=== PATIENT | male | born 2000 | race Two or more races ===

== ENCOUNTER 2021-07-05 15:56 | Inpatient (IN) | payer BC, MEDICAID ==
[~2021-07-05] VITALS: Ht 162.6 cm; Wt 59.4 kg
[2021-07-05] MEDS ORDERED: ONDANSETRON HCL 4MG/2ML INJ IV STA (19:49)
[2021-07-05] MEDS ORDERED: SODIUM CHLORIDE 0.9% 1,000 ML IV ONE (20:00)
[2021-07-05] MEDS ORDERED: LORAZEPAM 2MG/ML CPJ IV ONE (20:00)
[2021-07-05] MEDS ORDERED: FOLIC ACID 1 MG, THIAMINE HCL 100 MG, MVI, ADULT NO.1 10 ML in DEXTROSE 5% WATER 1,000 ML IV ONE (20:00)
[2021-07-05 20:12] LABS: BASOPHILS % 0.3 % (0.0-2.0); EOSINOPHILS % 0.1 % (0.0-5.0); HEMATOCRIT. 42.7 % (42.0-52.0); HEMOGLOBIN. 15.1 g/dL (14.0-18.0); LYMPHOCYTES % 8.3 % (20.0-50.0); MEAN CORPUSCULAR HEMOGLOBIN 32.4 pg (28.0-32.0); MEAN CORPUSCULAR VOLUME 91.2 fL (80.0-94.0); MEAN PLATELET VOLUME 8.4 fl (7.4-10.4); MONOCYTES % 10.7 % (2.0-8.0); NEUTROPHILS % 80.6 % (40.0-76.0); PLATELET 224 x1000/uL (130-400); RED BLOOD CELL COUNT 4.68 mill/uL (4.7-6.1); RED CELL DISTRIBUTION WIDTH 13.3 % (11.6-14.6)
[2021-07-05 20:25] LABS: CHLORIDE 102 mEq/L (98-107)
[2021-07-05 20:29] LABS: ETHANOL BLOOD < 10 mg/dL
[2021-07-05] MEDS ORDERED: CHLORDIAZEPOXIDE 5 MG CAPSULE PO NR (23:45)
[2021-07-05] MEDS ORDERED: CHLORDIAZEPOXIDE 25MG CAPSULE PO ONE (23:45)
[2021-07-06] MEDS ORDERED: ONDA4TAB5 MT (00:51)
[2021-07-06 01:24] LABS: CLARITY URINE CLOUDY (CLEAR); COLOR URINE DARK YELLOW (YELLOW); KETONES URINE 4+ (NEGATIVE); LEUKOCYTE ESTERASE URINE NEGATIVE (NEGATIVE); NITRITE URINE NEGATIVE (NEGATIVE); OCCULT BLOOD URINE NEGATIVE (NEGATIVE); PROTEIN URINE 1+ (NEGATIVE)
[2021-07-06 01:46] LABS: *AMPHETAMINES SCREEN URINE NEGATIVE (NEGATIVE); *BARBITURATES SCREEN URINE NEGATIVE (NEGATIVE); *BENZODIAZEPINES SCREEN URINE NEGATIVE (NEGATIVE); *COCAINE SCREEN URINE NEGATIVE (NEGATIVE)
[2021-07-06 01:47] LABS: CANNABINOID URINE SCREEN PRESUMTIVE POSITIVE (NEGATIVE); METHADONE URINE SCREEN NEGATIVE (NEGATIVE); OPIATES URINE SCREEN NEGATIVE (NEGATIVE); PHENCYCLIDINE URINE SCREEN NEGATIVE (NEGATIVE)
[2021-07-06] MEDS ORDERED: LORAZEPAM 2MG/ML CPJ IV SCH (03:30)
[2021-07-06] MEDS ORDERED: MAGNESIUM 2 G PREMIX 50 ML IV SCH (03:30)
[2021-07-06] MEDS ORDERED: FOLIC ACID 1 MG, THIAMINE HCL 100 MG, MVI, ADULT NO.1 10 ML in DEXTROSE 5% WATER 1,000 ML IV ONE (03:30)
[2021-07-06] MEDS ORDERED: ACETAMINOPHEN 325MG TABLET PO PRN (10:45)
[2021-07-06] MEDS ORDERED: LORAZEPAM 2MG/ML CPJ IV PRN (10:45)
[2021-07-06 14:22] VITALS: BP 130/71
[2021-07-06] MEDS ORDERED: LORA-250 PO (14:34)
[2021-07-06] MEDS ORDERED: ESCI20TA PO (14:34)
[2021-07-06] MEDS: ONDANSETRON HCL 4MG/2ML INJ IV PRN ×2 (15:10→22:21)
[2021-07-06] MEDS: CHLORDIAZEPOXIDE 5 MG CAPSULE PO SCH ×2 (15:10→22:15)
[2021-07-06 16:00] VITALS: BP 130/71
[2021-07-06 20:00] VITALS: BP 105/61
[2021-07-06] MEDS: METOPROLOL TARTRATE 50MG TABLET PO SCH (21:00)
[2021-07-07] VITALS: BP 122/76
[2021-07-07 04:00] VITALS: BP 111/69
[2021-07-07] MEDS: CHLORDIAZEPOXIDE 5 MG CAPSULE PO SCH ×3 (05:53→21:00)
[2021-07-07 08:00] VITALS: BP 121/81
[2021-07-07] MEDS ORDERED: HYDROCODONE/ACETAMINOPHEN 5/325MG TABLET PO PRN (09:15)
[2021-07-07] MEDS ORDERED: NALOXONE HCL 0.4MG/ML VIAL IV PRN (09:15)
[2021-07-07] MEDS: METOPROLOL TARTRATE 50MG TABLET PO SCH ×2 (09:29→21:00)
[2021-07-07] MEDS ORDERED: CEFTRIAXONE 1 G PREMIX 50 ML IV SCH (11:15)
[2021-07-07] MEDS: THIAMINE HCL 100MG TABLET PO SCH (11:42)
[2021-07-07 12:00] VITALS: BP 115/77
[2021-07-07 12:37] LABS: HEMATOCRIT. 45.7 % (42.0-52.0); HEMOGLOBIN. 15.8 g/dL (14.0-18.0); MEAN CORPUSCULAR HEMOGLOBIN 31.5 pg (28.0-32.0); MEAN CORPUSCULAR VOLUME 91.3 fL (80.0-94.0); MEAN PLATELET VOLUME 8.9 fl (7.4-10.4); PLATELET 229 x1000/uL (130-400); RED BLOOD CELL COUNT 5.01 mill/uL (4.7-6.1); RED CELL DISTRIBUTION WIDTH 13.3 % (11.6-14.6)
[2021-07-07 12:42] LABS: CHLORIDE 104 mEq/L (98-107)
[2021-07-07 13:05] LABS: PLATELET ESTIMATE NORMAL
[2021-07-07] MEDS: CEFTRIAXONE 1,000 MG in DEXTROSE 5% WATER 50 ML IV SCH (13:51)
[2021-07-07 16:00] VITALS: BP 113/64
[2021-07-07 20:00] VITALS: BP 117/73
[2021-07-08] VITALS: BP 112/77
[2021-07-08 04:00] VITALS: BP 112/71
[2021-07-08] MEDS: CHLORDIAZEPOXIDE 5 MG CAPSULE PO SCH ×2 (06:10→11:48)
[2021-07-08 08:00] VITALS: BP 116/67
[2021-07-08] MEDS: THIAMINE HCL 100MG TABLET PO SCH (08:50)
[2021-07-08] MEDS: METOPROLOL TARTRATE 50MG TABLET PO SCH (08:50)
[2021-07-08] MEDS ORDERED: THIA100T88 MT (10:24)
[2021-07-08] MEDS ORDERED: AZIT250T12 MT (10:24)
[2021-07-08] MEDS ORDERED: RISPERIDONE 0.5MG TABLET PO SCH (10:30)
[2021-07-08] MEDS: CEFTRIAXONE 1,000 MG in DEXTROSE 5% WATER 50 ML IV SCH (11:49)
[2021-07-08 12:00] VITALS: BP 102/62
[2021-07-08 12:26] VITALS: BP 102/62
[2021-07-08] MEDS ORDERED: BUPROPION HCL 150MG TABLET XL 24HR PO SCH (12:30)
== END 2021-07-08 15:20 | disposition home or self-care (01) | DRG 137 ==
LOC: ER 15:56 → EDBEDREQSVC 07-06 10:49 → 8WST 07-06 14:22 → 7WST 07-07 00:20
PROVIDERS: ADMIT Internal Medicine; ATTEND Internal Medicine
DX: U07.1 COVID-19 (principal); R45.851 Suicidal ideations; F10.239 Alcohol dependence with withdrawal, unspecified; F12.90 Cannabis use, unspecified, uncomplicated; R53.1 Weakness; Y90.0 Blood alcohol level of less than 20 mg/100 ml; F32.9 Major depressive disorder, single episode, unspecified; Z90.49 Acquired absence of other specified parts of digestive tract; Z91.51 Personal history of suicidal behavior; Z71.41 Alcohol abuse counseling and surveillance of alcoholic
CPT/HCPCS: 36415; 80048; 80053; 80305; 80320; 81003; 82962; 85025; 93005; 99291; C1893; J0696; J2060; J2405; J3411; J3475; J3490; J7030; J7040; J7060; J7070; U0003; U0005; G0480